=== PATIENT | male | born 1990 | race Native Hawaiian/Other Pacific Islander ===

== ENCOUNTER 2017-11-11 14:55 | Inpatient (IN) | payer OTHER ==
[2017-11-11 17:22] VITALS: BMI 22.8
--- NOTE | 2017-11-11 20:45 | HP ---
CIWA Score - CIWA Score Nausea/Vomitin Muscle Tremors: 3 Anxiety: 3 Agitation: 1-Slight > Activity Paroxysmal Sweats: 1-Minimal Palms Moist Orientation: 0-Oriented Tacttile Disturbances: 0-None Auditory Disturbances: 0-None Visual Disturbances: 0-None Headache: 4-Moderately Severe CIWA-Ar Total Score: 15 Admission ROS S - HPI Chief Complaint: Alcohol withdrawal symptoms Allergies/Adverse Reactions: Allergies Allergy/AdvReac Type Severity Reaction Status Date / Time No Known Allergies Allergy Verified 11/11/17 19:24 History of Present Illness: 27 years old male with a long history of alcohol dependence is seeking admission to detox. Patient has been in previous detox in [place] and reports 10 months of sobriety. He has medical history of seizure and depression. He denies suicide attempt and suicidal ideation at this time. Exam Limitations: No Limitations - Ebola screening Have you traveled outside of the country in the last 21 days: No Have you had contact with anyone from an Ebola affected area: No Have you been sick,other than usual withdrawal symptoms: No Do you have a fever: No - Review of Systems Constitutional: Loss of Appetite, Malaise, Night Sweats, Changes in sleep EENT: reports: No Symptoms Reported Respiratory: reports: No Symptoms reported Cardiac: reports: No Symptoms Reported GI: reports: Nausea, Poor Appetite, Poor Fluid Intake, Abdominal cramping : reports: No Symptoms Reported Musculoskeletal: reports: Back Pain, Muscle Pain, Muscle Weakness, Other (leg pain) Integumentary: reports: Dryness Neuro: reports: Tremors Endocrine: reports: No Symptoms Reported Hematology: reports: No Symptoms Reported Psychiatric: reports: Mood/Affect Appropiate, Orientated x3, Depressed Other Systems: Reviewed and Negative Patient History - Patient Medical History Hx Anemia: No Hx Asthma: No Hx Chronic Obstructive Pulmonary Disease (COPD): No Hx Cancer: No Hx Cardiac Disorders: No Hx Congestive Heart Failure: No Hx Hypertension: No Hx Hypercholesterolemia: No Hx Pacemaker: No HX Cerebrovascular Accident: No Hx Seizures: Yes (Not on medication) Hx Dementia: No Hx Diabetes: No Hx Gastrointestinal Disorders: No Hx Liver Disease: No Hx Genitourinary Disorders: No Hx Sexually Transmitted Disorders: No Hx Renal Disease (ESRD): No Hx Thyroid Disease: No Hx Human Immunodeficiency Virus (HIV): No (Negative 2016) Hx Hepatitis C: No Hx Depression: No Hx Suicide Attempt: No (Denies suicide attempt and suicidal ideation at this time) Hx Bipolar Disorder: No Hx Schizophrenia: No - Patient Surgical History Past Surgical History: No - PPD History Previous Implant?: Yes Documented Results: Negative w/o proof Implanted On Prior [facility] Admission?: No PPD to be Administered?: Yes - Reproductive History Patient is a Female of Child Bearing Age (11 -55 yrs old): No (MALE) - Smoking Cessation Smoking history: Current every day smoker Have you smoked in the past 12 months: Yes Aproximately how many cigarettes per day: 10 Hx Chewing Tobacco Use: No Initiated information on smoking cessation: Yes 'Breaking Loose' booklet given: 11/11/17 - Substance & Tx. History Hx Alcohol Use: Yes Hx Substance Use: No Substance Use Type: Alcohol Hx Substance Use Treatment: Yes (Facility in [place]) - Substances Abused Alcohol Route: Oral Frequency: Daily Amount used: 12 PACK BEER AND VODKA Age of first use: 13 Date of Last Use: 11/11/17 Family Disease History - Family Disease History Family Disease History: Diabetes: Grandparent, Father Admission Physical Exam [facility] - Vital Signs Vital Signs: Vital Signs - 24 hr 11/11/17 17:19 Temperature 97 F L Pulse Rate 91 H Respiratory 18 Rate Blood Pressure 117/71 - Physical General Appearance: Yes: Moderate Distress, Tremorous, Irritable, Sweating, Anxious HEENTM: Yes: Normal ENT Inspection, Normocephalic, Normal Voice, ELY Respiratory: Yes: Lungs Clear, Normal Breath Sounds, No Respiratory Distress Neck: Yes: Supple Breast: Yes: Breast Exam Deferred Cardiology: Yes: Tachycardia Abdominal: Yes: Normal Bowel Sounds Genitourinary: Yes: Within Normal Limits Back: Yes: Normal Inspection Extremities: Yes: Tremors Neurological: Yes: sander hand II-XII NML intact, Alert, Motor Strength 5/5, Normal Mood /Affect, Normal Response Integumentary: Yes: Warm Lymphatic: Yes: Within Normal Limits - Diagnostic (1) Alcohol dependence with uncomplicated withdrawal Current Visit: Yes Status: Chronic (2) Nicotine dependence Current Visit: Yes Status: Chronic (3) Seizure Current Visit: Yes Status: Chronic (4) Depression Current Visit: Yes Status: Chronic Qualifiers: Depression Type: unspecified Qualified Code(s): F32.9 - Major depressive disorder, single episode, unspecified Cleared for Admission [facility] - Detox or Rehab [facility] Level of Care: Medically Managed Detox Regimen/Protocol: Librium [facility] Breath Alcohol Content Breath Alcohol Content: 0.103 Urine Drug Screen - Results Drug Screen Negative: Yes
[2017-11-11] MEDS ORDERED: chlordiazePOXIDE HCL 25 MG CAPSULE PO PRN (23:41)
[2017-11-11] MEDS ORDERED: P-EPHED 60MG/TRIPROLIDI 2.5MG TABLET PO PRN (23:41)
[2017-11-11] MEDS ORDERED: MAG HYDROX/AL HYDROX/SIMETH 30 ML UNIT-DOSE CUP PO PRN (23:41)
[2017-11-11] MEDS ORDERED: MENTHOL/PHENOL 1 EACH UD MM PRN (23:41)
[2017-11-11] MEDS ORDERED: LOPERAMIDE HCL 2 MG CAPSULE PO PRN (23:41)
[2017-11-11] MEDS ORDERED: MAGNESIUM HYDROX 2400MG/30ML ORAL SUSPENSION 30 ML CUP PO PRN (23:41)
[2017-11-11] MEDS ORDERED: guaiFENesin/D-METHORPHAN HB 10 ML UNIT-DOSE CUPS PO PRN (23:41)
[2017-11-11] MEDS ORDERED: MAGNESIUM CITRATE 300 ML BOTTLE PO PRN (23:41)
[2017-11-11] MEDS: chlordiazePOXIDE HCL 25 MG CAPSULE PO SCH (23:56)
[2017-11-12] MEDS: chlordiazePOXIDE HCL 25 MG CAPSULE PO SCH ×4 (05:28→23:49)
--- NOTE | 2017-11-12 07:34 | CONSULT ---
[facility] Psychiatric Consult - Data Date of interview: 11/12/17 Admission source: [facility] Identifying data: This is a 27 years old male, sindle, homeless, unemployed, with no income, with no psychiatric hospitalization history, with a long history of alcohol dependence is seeking admission to detox. Substance Abuse History: Smoking history: Current every day smoker. Have you smoked in the past 12 months: Yes. Aproximately how many cigarettes per day: 10. Hx Chewing Tobacco Use: No. Initiated information on smoking cessation: Yes. 'Breaking Loose' booklet given: 11/11/17. - Substance & Tx. History. Hx Alcohol Use: Yes. Hx Substance Use: No. Substance Use Type: Alcohol. Hx Substance Use Treatment: Yes (Facility in [place]). - Substances Abused. Alcohol. Route: Oral. Frequency: Daily. Amount used: 12 PACK BEER AND VODKA. Age of first use: 13. Date of Last Use: 11/11/17 Medical History: Seizure history Psychiatric History: Patient reports history of depression and anxiety, reports no medications taking prior to admission. Physical/Sexual Abuse/Trauma History: Denies Additional Comment: Observation. Detox Unit Care Protocol Mental Status Exam - Mental Status Exam Alert and Oriented to: Person Cognitive Function: Fair Patient Appearance: Unkempt Mood: Sad Affect: Flat Patient Behavior: Sedated Speech Pattern: Delayed Voice Loudness: Mildly Soft/Quiet Thought Process: Circumstantial Thought Disorder: Being Controlled Hallucinations: Denies Suicidal Ideation: Denies Homicidal Ideation: Denies Insight/Judgement: Fair Sleep: Difficulty falling asleep Appetite: Weight loss Muscle strength/Tone: Normal Gait/Station: Shuffling Additional Comments: Observation. Detox Unit Care Protocol Psychiatric Findings - Problem List (Springer 1, 2,3) (1) Alcohol dependence with uncomplicated withdrawal Current Visit: Yes Status: Chronic (2) Nicotine dependence Current Visit: Yes Status: Chronic (3) Seizure Current Visit: Yes Status: Chronic - Initial Treatment Plan Initial Treatment Plan: Observation. Detox Unit Care Protocol
[2017-11-12] MEDS: PRENATAL VITAMINS W/ FOLIC ACID TABLET (FP) PO SCH (10:12)
[2017-11-12] MEDS: ACETAMINOPHEN 325 MG TABLET (FP) PO PRN (10:12)
[2017-11-12] MEDS: NICOTINE 14 MG/24 HOURS TOPICAL PATCH TD SCH (10:13)
[2017-11-12 10:25] LABS: MCH 32.2 pg (25.7-33.7); MCHC 34.1 g/dl (32.0-35.9); MEAN CELL VOLUME 94.5 fl (80-96); PLATELET COUNT 236 K/MM3 (134-434); RBC 4.34 M/mm3 (4.00-5.60); RDW 12.4 % (11.9-15.9); WHITE BLOOD COUNT 4.5 K/mm3 (4.0-10.0)
[2017-11-12 10:32] LABS: CHLORIDE 103 mmol/L (98-107); POTASSIUM 4.1 mmol/L (3.5-5.1); SODIUM 142 mmol/L (136-145)
[2017-11-12 10:37] LABS: ALBUMIN 3.6 g/dl (3.4-5.0); ALK PHOS 76 U/L (45-117); ANION GAP 9 MMOL/L (8-16); BILIRUBIN,TOTAL 0.6 mg/dL (0.2-1.0); BLOOD UREA NITROGEN 12 mg/dL (7-18); CALCIUM 9.1 mg/dL (8.5-10.1); CO2 30 mmol/L (21-32); CREATININE 0.8 mg/dL (0.7-1.3); GLUCOSE,RANDOM 57 mg/dL (74-106); SGOT/AST 28 U/L (15-37); SGPT/ALT 30 U/L (12-78); TOT PROT 6.4 g/dl (6.4-8.2)
--- NOTE | 2017-11-12 11:02 | PN ---
S CIWA - CIWA Score Nausea/Vomitin Muscle Tremors: 3 Anxiety: 2 Agitation: 2 Paroxysmal Sweats: 1-Minimal Palms Moist Orientation: 0-Oriented Tacttile Disturbances: 1-Very Mild Itch/Numbness Auditory Disturbances: 1-Very Mild Visual Disturbances: 0-None Headache: 2-Mild CIWA-Ar Total Score: 15 S Progress Note (SOAP) Subjective: alert,irritable,anxious,interrupted sleep,tremor Objective: 11/12/17 11:00 Vital Signs Temperature 98.2 F 11/12/17 09:27 Pulse Rate 55 L 11/12/17 09:27 Respiratory Rate 19 11/12/17 09:27 Blood Pressure 115/64 11/12/17 09:27 O2 Sat by Pulse Oximetry (%) ekg sinus bradycardia 56/min qt/qtc 424/409 Laboratory Last Values WBC 4.5 K/mm3 (4.0-10.0) 11/12/17 07:00 RBC 4.34 M/mm3 (4.00-5.60) 11/12/17 07:00 Hgb 14.0 GM/dL (11.7-16.9) 11/12/17 07:00 Hct 41.0 % (35.4-49) 11/12/17 07:00 MCV 94.5 fl (80-96) 11/12/17 07:00 MCH 32.2 pg (25.7-33.7) 11/12/17 07:00 MCHC 34.1 g/dl (32.0-35.9) 11/12/17 07:00 RDW 12.4 % (11.9-15.9) 11/12/17 07:00 Plt Count 236 K/MM3 (134-434) 11/12/17 07:00 MPV 7.0 fl (7.5-11.1) L 11/12/17 07:00 Sodium 142 mmol/L (136-145) 11/12/17 07:00 Potassium 4.1 mmol/L (3.5-5.1) 11/12/17 07:00 Chloride 103 mmol/L (98-107) 11/12/17 07:00 Carbon Dioxide 30 mmol/L (21-32) 11/12/17 07:00 Anion Gap 9 MMOL/L (8-16) 11/12/17 07:00 BUN 12 mg/dL (7-18) 11/12/17 07:00 Creatinine 0.8 mg/dL (0.7-1.3) 11/12/17 07:00 Creat Clearance w eGFR > 60 (>60) 11/12/17 07:00 Random Glucose 57 mg/dL (74-106) L 11/12/17 07:00 Calcium 9.1 mg/dL (8.5-10.1) 11/12/17 07:00 Total Bilirubin 0.6 mg/dL (0.2-1.0) 11/12/17 07:00 AST 28 U/L (15-37) 11/12/17 07:00 ALT 30 U/L (12-78) 11/12/17 07:00 Alkaline Phosphatase 76 U/L (45-117) 11/12/17 07:00 Total Protein 6.4 g/dl (6.4-8.2) 11/12/17 07:00 Albumin 3.6 g/dl (3.4-5.0) 11/12/17 07:00 Assessment: 11/12/17 11:02 withdrawal symptom Plan: continue detox
--- NOTE | 2017-11-12 16:01 | EKG ---
Test Reason : Blood Pressure : / mmHG Vent. Rate : 056 BPM Atrial Rate : 056 BPM P-R Int : 150 ms QRS Dur : 106 ms QT Int : 424 ms P-R-T Axes : 064 094 072 degrees QTc Int : 409 ms SINUS BRADYCARDIA RIGHTWARD AXIS BORDERLINE ECG WHEN COMPARED WITH ECG OF 11-NOV-2017 22:17, RIGHT BUNDLE BRANCH BLOCK IS NO LONGER PRESENT Confirmed by Sirisha Rock ([id number]) on 11/12/2017 4:01:17 PM Referred By: Confirmed By:Sirisha Rock
--- NOTE | 2017-11-12 16:05 | EKG ---
Test Reason : Blood Pressure : / mmHG Vent. Rate : 064 BPM Atrial Rate : 064 BPM P-R Int : 118 ms QRS Dur : 112 ms QT Int : 396 ms P-R-T Axes : 037 092 056 degrees QTc Int : 408 ms NORMAL SINUS RHYTHM RIGHT BUNDLE BRANCH BLOCK ABNORMAL ECG NO PREVIOUS ECGS AVAILABLE Confirmed by Sirisha Rock ([id number]) on 11/12/2017 4:04:49 PM Referred By: Confirmed By:Sirisha Rock
[2017-11-12 16:29] LABS: URINE APPEARANCE SLCLOUDY; URINE BILIRUBIN NEGATIVE (<2.0 mg/dL); URINE COLOR LTYELLOW; URINE GLUCOSE (UA) NEGATIVE (NEGATIVE); URINE KETONE NEGATIVE (NEGATIVE); URINE LEUK ESTERASE NEGATIVE (NEGATIVE); URINE NITRITE NEGATIVE (NEGATIVE); URINE PROTEIN NEGATIVE (NEGATIVE); URINE UROBILINOGEN NEGATIVE mg/dL (0.2-1.0)
[2017-11-12] MEDS: IBUPROFEN 400 MG TABLET (FP) PO PRN (21:10)
[2017-11-12] MEDS: NICOTINE POLACRILEX 2 MG GUM BC PRN (21:11)
[2017-11-12] MEDS: MELATONIN 5 MG TABLETS PO PRN (22:21)
[2017-11-12] MEDS: THIAMINE HCL 100 MG TABLET (FP) PO SCH (22:21)
[2017-11-13] MEDS: chlordiazePOXIDE HCL 25 MG CAPSULE PO SCH ×3 (06:15→18:01)
[2017-11-13] MEDS: ACETAMINOPHEN 325 MG TABLET (FP) PO PRN ×3 (06:16→22:10)
[2017-11-13] MEDS: NICOTINE POLACRILEX 2 MG GUM BC PRN ×2 (06:49→11:17)
--- NOTE | 2017-11-13 11:07 | PN ---
S CIWA - CIWA Score Nausea/Vomitin Muscle Tremors: 3 Anxiety: 3 Agitation: 2 Paroxysmal Sweats: 1-Minimal Palms Moist Orientation: 0-Oriented Tacttile Disturbances: 1-Very Mild Itch/Numbness Auditory Disturbances: 1-Very Mild Visual Disturbances: 0-None Headache: 2-Mild CIWA-Ar Total Score: 16 [facility] Progress Note (SOAP) Subjective: alert,irritable,anxious,interrupted sleep,tremor Objective: 11/13/17 11:05 Vital Signs Temperature 97.9 F 11/13/17 10:12 Pulse Rate 66 11/13/17 10:12 Respiratory Rate 18 11/13/17 10:12 Blood Pressure 118/77 11/13/17 10:12 O2 Sat by Pulse Oximetry (%) 11/13/17 11:05 Laboratory Last Values WBC 4.5 K/mm3 (4.0-10.0) 11/12/17 07:00 RBC 4.34 M/mm3 (4.00-5.60) 11/12/17 07:00 Hgb 14.0 GM/dL (11.7-16.9) 11/12/17 07:00 Hct 41.0 % (35.4-49) 11/12/17 07:00 MCV 94.5 fl (80-96) 11/12/17 07:00 MCH 32.2 pg (25.7-33.7) 11/12/17 07:00 MCHC 34.1 g/dl (32.0-35.9) 11/12/17 07:00 RDW 12.4 % (11.9-15.9) 11/12/17 07:00 Plt Count 236 K/MM3 (134-434) 11/12/17 07:00 MPV 7.0 fl (7.5-11.1) L 11/12/17 07:00 Sodium 142 mmol/L (136-145) 11/12/17 07:00 Potassium 4.1 mmol/L (3.5-5.1) 11/12/17 07:00 Chloride 103 mmol/L (98-107) 11/12/17 07:00 Carbon Dioxide 30 mmol/L (21-32) 11/12/17 07:00 Anion Gap 9 MMOL/L (8-16) 11/12/17 07:00 BUN 12 mg/dL (7-18) 11/12/17 07:00 Creatinine 0.8 mg/dL (0.7-1.3) 11/12/17 07:00 Creat Clearance w eGFR > 60 (>60) 11/12/17 07:00 POC Glucometer 85 UNITS (80-120) 11/13/17 06:44 Random Glucose 57 mg/dL (74-106) L 11/12/17 07:00 Calcium 9.1 mg/dL (8.5-10.1) 11/12/17 07:00 Total Bilirubin 0.6 mg/dL (0.2-1.0) 11/12/17 07:00 AST 28 U/L (15-37) 11/12/17 07:00 ALT 30 U/L (12-78) 11/12/17 07:00 Alkaline Phosphatase 76 U/L (45-117) 11/12/17 07:00 Total Protein 6.4 g/dl (6.4-8.2) 11/12/17 07:00 Albumin 3.6 g/dl (3.4-5.0) 11/12/17 07:00 Urine Color Ltyellow 11/12/17 11:00 Urine Appearance Slcloudy 11/12/17 11:00 Urine pH 8.0 (5.0-8.0) 11/12/17 11:00 Ur Specific [place] 1.011 (1.001-1.035) 11/12/17 11:00 Urine Protein Negative (NEGATIVE) 11/12/17 11:00 Urine Glucose (UA) Negative (NEGATIVE) 11/12/17 11:00 Urine Ketones Negative (NEGATIVE) 11/12/17 11:00 Urine Blood Negative (NEGATIVE) 11/12/17 11:00 Urine Nitrite Negative (NEGATIVE) 11/12/17 11:00 Urine Bilirubin Negative (<2.0 mg/dL) 11/12/17 11:00 Urine Urobilinogen Negative mg/dL (0.2-1.0) 11/12/17 11:00 Ur Leukocyte Esterase Negative (NEGATIVE) 11/12/17 11:00 RPR Titer Nonreactive (NONREACTIVE) 11/12/17 07:00 Assessment: 11/13/17 11:05 withdrawal signs and symptom 11/13/17 11:06 glucose 85 Plan: continue detox
[2017-11-13] MEDS: PRENATAL VITAMINS W/ FOLIC ACID TABLET (FP) PO SCH (11:13)
[2017-11-13] MEDS: NICOTINE 14 MG/24 HOURS TOPICAL PATCH TD SCH (11:13)
[2017-11-13] MEDS: IBUPROFEN 400 MG TABLET (FP) PO PRN (11:16)
[2017-11-13] MEDS: THIAMINE HCL 100 MG TABLET (FP) PO SCH (22:08)
[2017-11-13] MEDS: chlordiazePOXIDE 5 MG CAPSULE PO SCH (22:08)
[2017-11-13] MEDS: MELATONIN 5 MG TABLETS PO PRN (22:09)
[2017-11-14] MEDS: chlordiazePOXIDE 5 MG CAPSULE PO SCH ×3 (05:24→17:46)
[2017-11-14] MEDS: IBUPROFEN 400 MG TABLET (FP) PO PRN ×2 (05:28→17:44)
[2017-11-14] MEDS: PRENATAL VITAMINS W/ FOLIC ACID TABLET (FP) PO SCH (11:12)
[2017-11-14] MEDS: NICOTINE 14 MG/24 HOURS TOPICAL PATCH TD SCH (11:13)
[2017-11-14] MEDS: NICOTINE POLACRILEX 2 MG GUM BC PRN (11:16)
--- NOTE | 2017-11-14 11:52 | PN ---
[facility] Progress Note (SOAP) Subjective: Headache, sore eyes, interrupted sleep Objective: 11/14/17 11:49 Vital Signs 11/14/17 11/14/17 06:00 09:23 Temperature 97.2 F L 97.8 F Pulse Rate 58 L 52 L Respiratory 18 18 Rate Blood Pressure 108/56 106/61 Laboratory Last Values WBC 4.5 K/mm3 (4.0-10.0) 11/12/17 07:00 RBC 4.34 M/mm3 (4.00-5.60) 11/12/17 07:00 Hgb 14.0 GM/dL (11.7-16.9) 11/12/17 07:00 Hct 41.0 % (35.4-49) 11/12/17 07:00 MCV 94.5 fl (80-96) 11/12/17 07:00 MCH 32.2 pg (25.7-33.7) 11/12/17 07:00 MCHC 34.1 g/dl (32.0-35.9) 11/12/17 07:00 RDW 12.4 % (11.9-15.9) 11/12/17 07:00 Plt Count 236 K/MM3 (134-434) 11/12/17 07:00 MPV 7.0 fl (7.5-11.1) L 11/12/17 07:00 Sodium 142 mmol/L (136-145) 11/12/17 07:00 Potassium 4.1 mmol/L (3.5-5.1) 11/12/17 07:00 Chloride 103 mmol/L (98-107) 11/12/17 07:00 Carbon Dioxide 30 mmol/L (21-32) 11/12/17 07:00 Anion Gap 9 MMOL/L (8-16) 11/12/17 07:00 BUN 12 mg/dL (7-18) 11/12/17 07:00 Creatinine 0.8 mg/dL (0.7-1.3) 11/12/17 07:00 Creat Clearance w eGFR > 60 (>60) 11/12/17 07:00 POC Glucometer 91 UNITS (80-120) 11/14/17 05:26 Random Glucose 57 mg/dL (74-106) L 11/12/17 07:00 Calcium 9.1 mg/dL (8.5-10.1) 11/12/17 07:00 Total Bilirubin 0.6 mg/dL (0.2-1.0) 11/12/17 07:00 AST 28 U/L (15-37) 11/12/17 07:00 ALT 30 U/L (12-78) 11/12/17 07:00 Alkaline Phosphatase 76 U/L (45-117) 11/12/17 07:00 Total Protein 6.4 g/dl (6.4-8.2) 11/12/17 07:00 Albumin 3.6 g/dl (3.4-5.0) 11/12/17 07:00 Urine Color Ltyellow 11/12/17 11:00 Urine Appearance Slcloudy 11/12/17 11:00 Urine pH 8.0 (5.0-8.0) 11/12/17 11:00 Ur Specific [place] 1.011 (1.001-1.035) 11/12/17 11:00 Urine Protein Negative (NEGATIVE) 11/12/17 11:00 Urine Glucose (UA) Negative (NEGATIVE) 11/12/17 11:00 Urine Ketones Negative (NEGATIVE) 11/12/17 11:00 Urine Blood Negative (NEGATIVE) 11/12/17 11:00 Urine Nitrite Negative (NEGATIVE) 11/12/17 11:00 Urine Bilirubin Negative (<2.0 mg/dL) 11/12/17 11:00 Urine Urobilinogen Negative mg/dL (0.2-1.0) 11/12/17 11:00 Ur Leukocyte Esterase Negative (NEGATIVE) 11/12/17 11:00 RPR Titer Nonreactive (NONREACTIVE) 11/12/17 07:00 Labs noted Ecchymosis around left eye, reports sustained injury from fall during a drunken episode, denies visual changes Assessment: 11/14/17 11:51 Withdrawal sx Plan: Continue detox
[2017-11-14] MEDS: THIAMINE HCL 100 MG TABLET (FP) PO SCH (22:12)
[2017-11-14] MEDS: chlordiazePOXIDE HCL 10 MG CAPSULE PO SCH (22:12)
[2017-11-14] MEDS: MELATONIN 5 MG TABLETS PO PRN (22:12)
[2017-11-15] MEDS: chlordiazePOXIDE HCL 10 MG CAPSULE PO SCH ×3 (05:49→18:03)
[2017-11-15] MEDS: IBUPROFEN 400 MG TABLET (FP) PO PRN (05:51)
--- NOTE | 2017-11-15 09:52 | PN ---
[facility] Progress Note Note: Alert and oriented.
[2017-11-15] MEDS: PRENATAL VITAMINS W/ FOLIC ACID TABLET (FP) PO SCH (10:05)
[2017-11-15] MEDS: NICOTINE 14 MG/24 HOURS TOPICAL PATCH TD SCH (10:05)
[2017-11-15] MEDS: ACETAMINOPHEN 325 MG TABLET (FP) PO PRN ×3 (10:08→22:08)
--- NOTE | 2017-11-15 13:49 | PN ---
[facility] Progress Note (SOAP) Subjective: Feeling better. Minimal feelings of restlessness. Has some very mild tremors and anxiety. Objective: Alert and oriented x 3. Respirations quiet and unlabored. Gait steady. Lab Results WBC 4.5 K/mm3 (4.0-10.0) 11/12/17 07:00 RBC 4.34 M/mm3 (4.00-5.60) 11/12/17 07:00 Hgb 14.0 GM/dL (11.7-16.9) 11/12/17 07:00 Hct 41.0 % (35.4-49) 11/12/17 07:00 MCV 94.5 fl (80-96) 11/12/17 07:00 MCHC 34.1 g/dl (32.0-35.9) 11/12/17 07:00 RDW 12.4 % (11.9-15.9) 11/12/17 07:00 Plt Count 236 K/MM3 (134-434) 11/12/17 07:00 Sodium 142 mmol/L (136-145) 11/12/17 07:00 Potassium 4.1 mmol/L (3.5-5.1) 11/12/17 07:00 Chloride 103 mmol/L (98-107) 11/12/17 07:00 Carbon Dioxide 30 mmol/L (21-32) 11/12/17 07:00 Anion Gap 9 MMOL/L (8-16) 11/12/17 07:00 BUN 12 mg/dL (7-18) 11/12/17 07:00 Creatinine 0.8 mg/dL (0.7-1.3) 11/12/17 07:00 Random Glucose 57 mg/dL (74-106) L 11/12/17 07:00 Calcium 9.1 mg/dL (8.5-10.1) 11/12/17 07:00 Labs reviewed. Vital Signs 11/15/17 11/15/17 06:00 10:00 Temperature 97.3 F L 97.0 F L Pulse Rate 53 L 58 L Respiratory 18 20 Rate Blood Pressure 116/59 129/75 11/15/17 13:47 Assessment: 11/15/17 13:48 Alcohol withdrawal symptoms. Plan: Continue detox protocol. Add Vistaril HS for anxiety.
[2017-11-15] MEDS: NICOTINE POLACRILEX 2 MG GUM BC PRN (15:17)
[2017-11-15] MEDS ORDERED: hydrOXYzine PAMOATE 50 MG CAPSULE (FP) PO ONE (22:00)
[2017-11-15] MEDS: THIAMINE HCL 100 MG TABLET (FP) PO SCH (22:08)
[2017-11-15] MEDS: MELATONIN 5 MG TABLETS PO PRN (22:09)
[2017-11-16 07:36] VITALS: TEMP 97.2
--- NOTE | 2017-11-16 08:11 | PN ---
S Progress Note (SOAP) Subjective: alert,no complaint Objective: 11/16/17 08:10 Vital Signs Temperature 97.2 F L 11/16/17 07:36 Pulse Rate 60 11/16/17 07:36 Respiratory Rate 18 11/16/17 07:36 Blood Pressure 108/55 11/16/17 07:36 O2 Sat by Pulse Oximetry (%) Assessment: 11/16/17 08:10 detox completed,no withdrawal symptom Plan: discharge today,follow up with after care program as arrangement
--- NOTE | 2017-11-16 08:16 | DS ---
[facility] Detox Discharge Summary Admission Date: 11/11/17 Discharge Date: 11/16/17 - History Present History: Alcohol Dependence Pertinent Past History: nicotine depression seizure depression - Physical Exam Results Vital Signs: Vital Signs Temperature 97.2 F L 11/16/17 07:36 Pulse Rate 60 11/16/17 07:36 Respiratory Rate 18 11/16/17 07:36 Blood Pressure 108/55 11/16/17 07:36 O2 Sat by Pulse Oximetry (%) Pertinent Admission Physical Exam Findings: withdrawal signs and symptom Vital Signs Temperature 97.2 F L 11/16/17 07:36 Pulse Rate 60 11/16/17 07:36 Respiratory Rate 18 11/16/17 07:36 Blood Pressure 108/55 11/16/17 07:36 O2 Sat by Pulse Oximetry (%) - Treatment Hospital Course: Detox Protocol Followed, Detoxed Safely, Responded well, Discharged Condition Good Patient has Accepted a Rehab Referral to: declined - Medication Discharge Medications: Ambulatory Orders NK [No Known Home Medication] 11/11/17 - Diagnosis (1) Alcohol dependence with uncomplicated withdrawal Current Visit: Yes Status: Chronic (2) Depression Current Visit: Yes Status: Chronic Qualifiers: Depression Type: unspecified Qualified Code(s): F32.9 - Major depressive disorder, single episode, unspecified (3) Nicotine dependence Current Visit: Yes Status: Chronic Qualifiers: Nicotine product type: cigarettes Substance use status: uncomplicated Qualified Code(s): F17.210 - Nicotine dependence, cigarettes, uncomplicated (4) Seizure Current Visit: Yes Status: Chronic - AMA Did Patient Leave Against Medical Advice: No
[2017-11-16 09:23] VITALS: BP 108/66; PULSE 75
== END 2017-11-16 10:07 | disposition home or self-care (01) | DRG 775 ==
LOC: YASAS 14:55 → Y6N 19:53
PROVIDERS: ADMIT Surgery; ATTEND Surgery
PROC: HZ2ZZZZ Detoxification Services for Substance Abuse Treatment (ICD-10-PCS; principal; 2017-11-11)
DX: F10.230 Alcohol dependence with withdrawal, uncomplicated (principal); F17.210 Nicotine dependence, cigarettes, uncomplicated; F32.9 Major depressive disorder, single episode, unspecified; R56.9 Unspecified convulsions
CPT/HCPCS: 36415; 80053; 81003; 82962; 85027; 86593; 93005; 93010